=== PATIENT | female | born 2000 | race African-American/Black ===

== ENCOUNTER 2021-05-07 19:18 | Emergency (ER) | payer MEDICAID ==
[~2021-05-07] VITALS: Ht 167.6 cm; Wt 87.6 kg
--- NOTE | 2021-05-07 19:43 | PHYS DOC ---
Adult General HPI HPI Patient is a G2, P1 at approximately 3 weeks who presents with vaginal bleeding over the last couple of days. States she finished her menstrual cycle around April 17, and had a positive test at home 5 days ago. States she had not talked to an OB or had an ultrasound yet. States she is going through about 3 pads a day, Blight red, mild to moderate bleeding with no clots. States she has some mild lower abdominal cramping, 3 out of 10. Denies any headache, lightheadedness, changes in vision, chest pain, shortness of breath, other abdominal pain, nausea, vomiting, diarrhea. Denies any recent travels, traumas, fevers, rash. States she is otherwise eating and drinking normally. Review of Systems Review of Systems Review of systems otherwise unremarkable except noted in HPI Physical Exam Physical Exam Constitutional: Well developed, well nourished, no acute distress, non-toxic appearance. [] HENT: Normocephalic, atraumatic, bilateral external ears normal, oropharynx moist, Eyes: conjunctiva normal, no discharge. [] Neck: Normal range of motion, no tenderness, supple, no stridor. [] Cardiovascular:Heart rate regular rhythm, no murmur [] Lungs & Thorax: Bilateral breath sounds clear to auscultation [] Abdomen: soft, no tenderness, no masses, no pulsatile masses. : [] No external lesions or tenderness, no cervical motion tenderness or disch arge, cervical os closed, very scant pink blood in the mucus but no gross blood or clots. Skin: Warm, dry, no erythema, no rash. [] Back: no CVA tenderness. [] Extremities: No tenderness, no cyanosis, no clubbing, ROM intact, no edema. [] Neurologic: Alert and oriented X 3, normal motor function, normal sensory function, no focal deficits noted. [] Psychologic: Affect normal, judgement normal, mood normal. [] EKG EKG [] Radiology/Procedures Radiology/Procedures [] Heart Score C/O Chest Pain: No Risk Factors: Risk Factors: DM, Current or recent (<one month) smoker, HTN, HLP, family history of CAD, obesity. Risk Scores: Risk Factors: DM, Current or recent (<one month) smoker, HTN, HLP, family history of CAD, obesity. Course & Med Decision Making Course & Med Decision Making Patient is a 21-year-old G2, P1 who presents at approximately 3 weeks gestation for vaginal bleeding and lower abdominal cramping for 1 to 2 days Vital signs nonconcerning. Physical exam noted above. Denied need for pain or nausea medicine at this time. Laboratory analysis not concerning. Beta-hCG 63 Transvaginal ultrasound with no intrauterine gestational sac identified an ill- defined 2.7 x 3.2 x 1.4 heterogenous left adnexal soft tissue indeterminate mass overall findings suggestive of early intrauterine , ectopic cannot be excluded. Discussed all findings with patient. Advised to follow-up first thing in the morning with a primary care physician and [facility] to discuss ED visit and set up a follow-up within the next week for repeat ultrasound and serum beta-hCG. Gave strict return precautions to the ED. Given contact information for local primary care physician and [facility]. Patient grateful, verbalized understanding and agreed with plan of discharge. Dragon Disclaimer Dragon Disclaimer This electronic medical record was generated, in whole or in part, using a voice recognition dictation system. Departure Departure: Impression: Primary Impression: Vaginal bleeding affecting early Disposition: HOME / SELF CARE / HOMELESS Condition: STABLE Referrals: PCP,DAMIEN (PCP) NIXON ALAN Patient Instructions: ABCs of , Vaginal Bleeding During , [id number] Additional Instructions: Thank you for coming into the emergency department tonight and allowing us to take care of you. Please read the attached information carefully to go over things we discussed. You are given a copy of your ultrasound report to take to your primary care physician and/or OB. Please begin Tylenol and Benadryl regimen to the 1000 mg of Tylenol and 50 mg of Benadryl every 8 hours as needed. Please come back to the emergency department immediately with new or concerning symptoms as discussed. Please call a primary care physician and [facility] first thing in the morning to set up a follow-up in approximately 1 week for repeat ultrasound and serum beta hCG. If you are unable to you can come back to the emergency department for this. You can call [facility] at the main line and asked to be transferred to the [facility]OD SELECTOR and get set up in their clinic for next week. Please call the primary care physician the number provided also if you do not have your own. Please come back with new or concerning symptoms as we discussed. CONDRA,RENAE W MD May 07, 2021 19:43
[2021-05-07 20:31] LABS: BILIRUBIN,URINE NEG (NEG); CLARITY,URINE CLEAR; COLOR,URINE YELLOW; GLUCOSE,URINE NEG (NEG); NITRITE,URINE NEG (NEG)
[2021-05-07 20:33] LABS: BACTERIA,URINE 0 /HPF (0-FEW); SQUAMOUS EPITHELIAL CELL,UR FEW /LPF; WBC,URINE 0 /HPF (0-4)
--- NOTE | 2021-05-07 20:43 | RAD ---
EXAMINATION: US TRANSVAGINAL ULTRASOUND HSG INDICATION: 21 years, Female, , vaginal bleeding for 4 days.. COMPARISON: None TECHNIQUE: Transabdominal and transvaginal ultrasound of the pelvis was performed with grayscale, spe ctral, and color doppler imaging. FINDINGS: Menstrual Status: 04/14/2021. UTERUS: Position: Anteverted. Measures: 6.7 x 5.1 x 3.2 cm. No intrauterine gestational sac identified. Endometrial thickness measures 1.6 cm. Gestational age by last menstrual period:01/19/2022 RIGHT OVARY/ADNEXA: Measures: 2.5 x 2.4 x 1.6 cm Ovarian Morphology: Follicular changes. Ovarian Color And Spectral Doppler Flow: Normal. LEFT OVARY/ADNEXA: Measures: 2.6 x 3.2 x 1.5 cm. Ovarian Morphology: Follicular changes. Ovarian Color And Spectral Doppler Flow: Normal. There is an ill-defined 2.7 x 3.2 x 1.4 cm, heterogeneous left adnexal soft tissue with internal vasc ularity. Fluid: No pelvic free fluid. IMPRESSION No intrauterine gestational sac identified. Ill-defined 2.7 x 3.2 x 1.4 cm, heterogeneous left adnexa l soft tissue with internal vascularity, indeterminate. Overall findings may represent early intraute rine . The aforementioned indeterminate left adnexal soft tissue could be a collapsed adjace nt bowel. However, ectopic cannot be totally excluded. Recommend correlation with beta-hCG. Electronically signed by: Enrrique Wright MD (05/07/2021 8:40 PM) [facility]
[2021-05-07 20:50] VITALS: BP 112/58
[2021-05-07 21:00] LABS: BASO % 1 % (0-3); EOS # 0.1 x10^3/uL (0.0-0.7); EOS % 1 % (0-3); HEMATOCRIT 38.5 % (36.0-47.0); HEMOGLOBIN 12.9 g/dL (12.0-15.5); LYMPH # 2.4 x10^3/uL (1.0-4.8); LYMPH % 33 % (24-48); MEAN CORPUSCULAR HEMOGLOBIN 31 pg (25-35); MEAN CORPUSCULAR HGB CONC 34 g/dL (31-37); MEAN CORPUSCULAR VOLUME 91 fL (79-100); MONO # 0.7 x10^3/uL (0.0-1.1); MONO % 10 % (0-9); NEUT # 4.1 x10^3uL (1.8-7.7); NEUT % 56 % (31-73); PLATELET COUNT 377 x10^3/uL (140-400); RED BLOOD COUNT 4.24 x10^6/uL (3.50-5.40); RED CELL DISTRIBUTION WIDTH 13.3 % (11.5-14.5); WHITE BLOOD COUNT 7.3 x10^3/uL (4.0-11.0)
[2021-05-07 21:06] LABS: CALCIUM 8.5 mg/dL (8.5-10.1); GFR 85.5; POTASSIUM 3.7 mmol/L (3.5-5.1)
[2021-05-07] MEDS ORDERED: ACETAMINOPHEN 500 MG TABLET PO ONE (22:15)
[2021-05-07] MEDS ORDERED: diphenhydrAMINE HCL 25 MG CAPSULE PO ONE (22:15)
== END 2021-05-07 22:30 | disposition home or self-care (01) ==
LOC: ER 19:18
DX: O26.891 Other specified pregnancy related conditions, first trimester (principal); Z3A.01 Less than 8 weeks gestation of pregnancy
CPT/HCPCS: 36415; 76817; 80048; 81001; 81025; 84702; 85025; 99284

== ENCOUNTER 2021-05-16 12:40 | Emergency (ER) | payer MEDICAID ==
[~2021-05-16] VITALS: Ht 167.6 cm; Wt 88.1 kg
[2021-05-16 14:43] LABS: U PREG PATIENT POSITIVE (NEG)
[2021-05-16 14:55] LABS: CLARITY,URINE HAZY; COLOR,URINE YELLOW
[2021-05-16 14:56] LABS: BACTERIA,URINE 0 /HPF (0-FEW); BILIRUBIN,URINE NEG (NEG); GLUCOSE,URINE NEG (NEG); NITRITE,URINE NEG (NEG); RBC,URINE TNTC /HPF (0-2); SQUAMOUS EPITHELIAL CELL,UR MOD /LPF; UROBILINOGEN,URINE 0.2 mg/dL (0.2 mg/dL); WBC,URINE OCC /HPF (0-4)
--- NOTE | 2021-05-16 14:59 | PHYS DOC ---
Past History Past Surgical History: No Surgical History Alcohol Use: None General Adult EDM: Chief Complaint: VAGINAL BLEEDING HPI: HPI: 21-year-old female presents to emergency department with bleeding in . Patient believes she is about 4 weeks along. She was seen in this emergency room a week ago with similar complaint. Ultrasound was unable to confirm intrauterine . Patient states she was told to come back for another ultrasound if she is still having bleeding in a week. That is why she is here. She denies any other symptoms at this time. Review of Systems: Review of Systems: Constitutional: Denies fever or chills Eyes: Denies change in visual acuity HENT: Denies nasal congestion or sore throat Respiratory: Denies cough or shortness of breath Cardiovascular: Denies chest pain or edema GI: Denies abdominal pain, nausea, vomiting, bloody stools or diarrhea : Vaginal bleeding in Musculoskeletal: Denies back pain or joint pain Integument: Denies rash Neurologic: Denies headache, focal weakness or sensory changes Endocrine: Denies polyuria or polydipsia Lymphatic: Denies swollen glands Psychiatric: Denies depression or anxiety Allergies: Allergies: Allergies Coded Allergies Type Severity Reaction Last Updated Verified No Known Drug Allergies 05/07/21 No Physical Exam: PE: Constitutional: Well developed, well nourished, no acute distress, non-toxic appearance. [] HENT: Normocephalic, atraumatic, bilateral external ears normal, oropharynx moist, no oral exudates, nose normal. [] Eyes: PERRLA, EOMI, conjunctiva normal, no discharge. [] Neck: Normal range of motion, no tenderness, supple, no stridor. [] Cardiovascular: Heart rate regular rhythm, no murmur [] Lungs & Thorax: Bilateral breath sounds clear to auscultation [] Abdomen: Bowel sounds normal, soft, no tenderness, no masses, no pulsatile masses. [] Skin: Warm, dry, no erythema, no rash. [] Back: No tenderness, no CVA tenderness. [] Extremities: No tenderness, no cyanosis, no clubbing, ROM intact, no edema. [] Neurologic: Alert and oriented X 3, normal motor function, normal sensory function, no focal deficits noted. [] Psychologic: Affect normal, judgement normal, mood normal. [] Current Patient Data: Labs: Laboratory Tests Test 05/16/21 14:25 05/16/21 14:32 Urine Collection Type Clean catch Urine Color Yellow Urine Clarity Hazy Urine pH 7.5 Urine Specific [place] 1.025 Urine Protein 30 mg/dl (NEG-TRACE) Urine Glucose (UA) Neg mg/dL (NEG) Urine Ketones (Stick) Neg mg/dL (NEG) Urine Blood Large (NEG) Urine Nitrite Neg (NEG) Urine Bilirubin Neg (NEG) Urine Urobilinogen Dipstick 0.2 mg/dL (0.2 mg/dL) Urine Leukocyte Esterase Neg (NEG) Urine RBC Tntc /HPF (0-2) Urine WBC Occ /HPF (0-4) Urine Squamous Epithelial Cells Mod /LPF Urine Bacteria 0 /HPF (0-FEW) Urine Test Positive (NEG) Vital Signs: Vital Signs Date Time Temp Pulse Resp B/P (MAP) Pulse Ox O2 Delivery O2 Flow Rate FiO2 05/16/21 14:15 98.8 91 18 133/80 (97) 99 Room Air EKG: EKG: [] Radiology/Procedures: Radiology/Procedures: [] Impressions: Transvaginal ultrasound the pelvis. HISTORY: Bleeding, beta hCG 57 today, previous ultrasound May 07. Transvaginal ultrasound was used to evaluate the pelvis. There is a trace of free fluid. There is no uterine mass. Endometrium measured 4 mm. Retained products of conception were not identified. Right ovary was normal measuring 3.2 x 2.1 x 2 cm. There is flow in the right ovary with color imaging and Doppler. Left ovary measured 3.3 x 1.4 x 2 cm. There is a small follicle in the left ovary. There is a 2 cm hemorrhagic or corpus lutein in the left ovary. There is flow in the left ovary with color imaging and Doppler. There is no adnexal mass noted. IMPRESSION: 1. No intrauterine gestation noted. 2. Corpus luteum left ovary. 3. No adnexal mass noted. 4. Trace of fluid in the pelvis. 5. No endometrial thickening noted. Electronically signed by: Lamberto Powell MD (05/16/2021 5:12 PM) [facility] DICTATED AND SIGNED BY: LAMBERTO POWELL MD DATE: 05/16/21 [id number] CC: IRA SALAZAR DO; PCP,NO ~MTH0 0 Heart Score: C/O Chest Pain: N/A Risk Factors: Risk Factors: DM, Current or recent (<one month) smoker, HTN, HLP, family history of CAD, obesity. Risk Scores: Score 0 - 3: 2.5% MACE over next 6 weeks - Discharge Home Score 4 - 6: 20.3% MACE over next 6 weeks - Admit for Clinical Observation Score 7 - 10: 72.7% MACE over next 6 weeks - Early Invasive Strategies Course & Med Decision Making: Course & Med Decision Making Pertinent Labs and Imaging studies reviewed. (See chart for details) The patient's hCG is 57. This is slightly lower than last week. She appears to be having a miscarriage. Ultrasound does not show intrauterine gestation. No other significant abnormalities or retained products found. I advised patient follow-up with her OB and repeat her hCG labs until they are 0. She is stable for discharge at this time. [] Silvioon Disclaimer: Dragon Disclaimer: This electronic medical record was generated, in whole or in part, using a voice recognition dictation system. Departure Departure: Impression: Primary Impression: Miscarriage Disposition: HOME / SELF CARE / HOMELESS Condition: STABLE Referrals: PCPDAMIEN (PCP) Patient Instructions: Miscarriage, [id number] Additional Instructions: You need to follow-up with your OB to repeat blood work until your hCG is 0. Today it was 57. IRA SALAZAR DO May 16, 2021 14:59
[2021-05-16 15:03] LABS: BASO # 0.1 x10^3/uL (0.0-0.2); BASO % 1 % (0-3); EOS % 1 % (0-3); HEMOGLOBIN 13.5 g/dL (12.0-15.5); LYMPH # 2.3 x10^3/uL (1.0-4.8); LYMPH % 36 % (24-48); MEAN CORPUSCULAR HEMOGLOBIN 31 pg (25-35); MEAN CORPUSCULAR HGB CONC 34 g/dL (31-37); MEAN CORPUSCULAR VOLUME 90 fL (79-100); MONO # 0.7 x10^3/uL (0.0-1.1); MONO % 11 % (0-9); NEUT # 3.3 x10^3uL (1.8-7.7); NEUT % 51 % (31-73); PLATELET COUNT 359 x10^3/uL (140-400); RED BLOOD COUNT 4.45 x10^6/uL (3.50-5.40); RED CELL DISTRIBUTION WIDTH 13.2 % (11.5-14.5); WHITE BLOOD COUNT 6.5 x10^3/uL (4.0-11.0)
[2021-05-16 15:13] LABS: CALCIUM 8.8 mg/dL (8.5-10.1); CREATININE 0.7 mg/dL (0.6-1.0); GFR 129.1; POTASSIUM 3.7 mmol/L (3.5-5.1)
[2021-05-16 15:18] LABS: ALBUMIN 3.9 g/dL (3.4-5.0); TOTAL BILIRUBIN 0.5 mg/dL (0.2-1.0); TOTAL PROTEIN 7.7 g/dL (6.4-8.2)
--- NOTE | 2021-05-16 17:15 | RAD ---
Transvaginal ultrasound the pelvis. HISTORY: Bleeding, beta hCG 57 today, previous ultrasound May 07. Transvaginal ultrasound was used to evaluate the pelvis. There is a trace of free fluid. There is no uterine mass. Endometrium measured 4 mm. Retained products of conception were not identified. Right ovary was normal measuring 3.2 x 2.1 x 2 cm. There is flow in the right ovary with color imagin g and Doppler. Left ovary measured 3.3 x 1.4 x 2 cm. There is a small follicle in the left ovary. There is a 2 cm he morrhagic or corpus lutein in the left ovary. There is flow in the left ovary with color imaging and Doppler. There is no adnexal mass noted. IMPRESSION: 1. No intrauterine gestation noted. 2. Corpus luteum left ovary. 3. No adnexal mass noted. 4. Trace of fluid in the pelvis. 5. No endometrial thickening noted. Electronically signed by: Lamberto Gonzáles MD (05/16/2021 5:12 PM) [facility]
[2021-05-16 17:42] VITALS: BP 115/63
== END 2021-05-16 17:43 | disposition home or self-care (01) ==
LOC: ER 12:40
DX: O03.9 Complete or unspecified spontaneous abortion without complication (principal)
CPT/HCPCS: 36415; 76817; 80053; 81001; 81025; 84702; 85025; 99284